=== PATIENT | female | born 1960 | race Caucasian/White ===

== ENCOUNTER → 2016-04-30 | Outpatient (CLI) | payer OTHER ==
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
== END | disposition home or self-care (01) ==
LOC: MRI 12:30
PROVIDERS: ATTEND Psychiatry & Neurology Neurology with Special Qualifications in Child Neurology
DX: S06.0X9A Concussion with loss of consciousness of unspecified duration, initial encounter (principal)
CPT/HCPCS: 70551

== ENCOUNTER → 2017-01-20 | Outpatient (CLI) | payer OTHER ==
--- NOTE | 2017-01-20 09:47 | KCIC ---
DATE: 01/20/2017 EXAM: MAMMO HOOD SCREENING BILATERAL HISTORY: Routine screening COMPARISON: 05/18/2013 The breast parenchyma is heterogeneously dense, which could reduce sensitivity of mammography. Breast parenchyma level C. FINDINGS: 2-D and 3-D tomosynthesis imaging was performed in CC and MLO projections. No new or enlarging breast densities are seen. Benign type calcifications are again noted. No suspicious microcalcifications have developed. IMPRESSION: Stable mammograms without evidence of malignancy. BI-RADS CATEGORY: 2 BENIGN FINDING(S) RECOMMENDED FOLLOW-UP: 12M 12 MONTH FOLLOW-UP PQRS compliance statement: Patient information was entered into a reminder system with a target due date for the next mammogram. Mammography is a sensitive method for finding small breast cancers, but it does not detect them all and is not a substitute for careful clinical examination. A negative mammogram does not negate a clinically suspicious finding and should not result in delay in biopsying a clinically suspicious abnormality. "Our facility is accredited by the [employer] Mammography Program."
--- NOTE | 2017-01-20 11:21 | KCIC ---
Thyroid ultrasound January 20, 2017 INDICATION: Thyroid nodule COMPARISON: Thyroid ultrasound February 02, 2007 technique: Sonographic imaging of the thyroid gland was performed. FINDINGS: The right thyroid gland measures 3.8 x 1.3 x 1.5 cm. The gland is homogenous in echotexture without significant hyperemia. No significant solid or cystic nodule. The thyroid isthmus is normal in appearance measuring 1.2 mm. Left thyroid gland measures 4.5 x 1.4 x 1.6 cm. There is a 1.3 x 1.1 x 0.9 cm complex solid and cystic nodule in the mid left thyroid lobe with increased vascularity. When compared to the report from February 02, 2007, it seems that the nodule has not significantly changed in size. IMPRESSION: There is a 1.3 x 1.1 x 0.9 cm complex nodule in the mid left thyroid lobe. Findings are not significantly changed when compared to the reported measurements from the scan performed February 02, 2007. Follow-up 1 year sonographic evaluation is recommended. Electronically signed by: Michela Contreras MD (01/20/2017 11:18 AM) [id number]
== END | disposition home or self-care (01) ==
LOC: KCIC MAMMO 07:49
PROVIDERS: ATTEND Family Medicine
DX: Z12.31 Encounter for screening mammogram for malignant neoplasm of breast (principal); E04.1 Nontoxic single thyroid nodule
CPT/HCPCS: 76536; 77063; G0202; 77067